=== PATIENT | female | born 1995 | race Caucasian/White ===

== ENCOUNTER 2019-04-11 07:53 | Day surgery (SDC) | payer OTHER ==
[2019-04-11 08:16] VITALS: BMI 27.6
[2019-04-11] MEDS ORDERED: hydrALAZINE 20 MG/ML VIAL SLOW IVP PRN (08:35)
== END 2019-04-11 08:30 | disposition home or self-care (01) ==
LOC: L&D/OP 07:53
PROVIDERS: ATTEND Family Medicine
DX: O26.893 Other specified pregnancy related conditions, third trimester (principal); O99.843 Bariatric surgery status complicating pregnancy, third trimester; Z3A.37 37 weeks gestation of pregnancy
CPT/HCPCS: 76815; 99282

== ENCOUNTER 2019-04-18 12:10 | Inpatient (IN) | payer OTHER ==
[2019-04-18 12:45] VITALS: BMI 28.0
[2019-04-18] MEDS ORDERED: hydrALAZINE 20 MG/ML VIAL SLOW IVP PRN (13:22)
--- NOTE | 2019-04-18 13:22 | PDOC.FPRHP ---
- Allergies/Adverse Reactions Allergies Allergy/AdvReac Type Severity Reaction Status Date / Time No Known Allergies Allergy Verified 04/11/19 08:31 - Home Medications Medication Instructions Recorded Confirmed Type Vit No.126/Iron/Folic 1 tab PO DAILY 04/11/19 04/18/19 History [Classic ] - History PMHx: PSHx: FHx: Social: - Vital signs BP: [] HR: [] RR: [] Tmax: [] Pox: []% on [] Wt: [] FMR H&P: Upper Level - Plan Date/Time: 04/18/19 1322 I, [], have evaluated this patient and agree with findings/plan as outlined by administration intern resident. Pertinent changes/additions are listed here.
--- NOTE | 2019-04-18 13:27 | PDOC.EVN ---
Event Note - Event Note Event Note: HISTORY AND PHYSICAL OBGYN Attending Time: 1320 L&D Triage (low Intervention room) CC: CTX HPI: The pateint sees Dr Acevedo. She is a 24 yo G1 at 38 weeks 6 days here with possible CTX since yesterday. Was 1cm yesterday and now is 3cm. No VB, no LOF, good FM, no issues. Review of Systems: complete ROS completed and as per HPI Past Med: None Past Surgical: none Allergies: none OB: G1, GBS negative Physical: BP and pulse wnl, afebrile, NAD 3/70/-1 Monitoring: STRIP 130s and reactive/Cat 1, toco with CTX every 3 min or so Assessment and plan: Latent labor at 38 weeks 6 days, GEB negative. 1. OBS for 2 hours 2. Admit if CX changes
--- NOTE | 2019-04-18 13:31 | PDOC.LDHP ---
Labor and Delivery H&P Chief complaint: contractions HPI: 24 yo G1 @ 38.6 presents for contractions that began last night. Ctx have increased in intensity and frequency and are now q3-5 min. Denies LOF. Has had some bloody show. Yesterday was dilated 1 cm. Denies dysuria, SOB, palpitations , edema, nausea, vomiting, headache, vision changes. Current gestational age (weeks): 38 (38.6) Due date: 04/26/19 Dating criteria: last menstrual period Grav: 1 Para: 0 OB History Details: Resolved placenta previa Current complications: none Past Medical History: None Current medications: pre-zeyad vitamins Previous surgical history: other (hiatal hernia repair, gastric sleeve) Allergies/Adverse Reactions: Allergies Allergy/AdvReac Type Severity Reaction Status Date / Time No Known Allergies Allergy Verified 04/11/19 08:31 Social history: none - Physical Exam Vital signs reviewed and normal: yes (113/76, 98.4, 18, 86) General: NAD Heart: RRR Lungs: nonlabored breathing FHT: category 1 (135/mod/+accel/no decel) [place] contractions every: 3-5 min - Vaginal Exam cm dilated: 3 Effacement: 75% Station: -1 - OB Labs Blood type: O RH: positive Antibody Screen: negative HIV: negative RPR: negative HEPSAg: negative 1 hour GCT: negative GBS: negative Rubella: immune - Plan Plan: observation in L&D -: Term sIUP w/ contractions - patient in low intervention suite - /-1 - GBS negative - confirmed vertex presentation on US - Cat I Plan for observation and will recheck cervix in 2 hours to see if patient makes change and progresses into labor
[2019-04-18] MEDS ORDERED: Diphenoxylate HCl/Atropine Tablet PO PRN (15:10)
[2019-04-18] MEDS ORDERED: Methylergonovine 0.2 MG/ML VIAL IM PRN (15:10)
[2019-04-18] MEDS ORDERED: Lactated Ringer's 1,000 ML IV PRN (15:10)
[2019-04-18] MEDS ORDERED: Carboprost 250 MCG/ML AMP IM PRN (15:10)
[2019-04-18] MEDS ORDERED: Promethazine HCl 25 MG/ML VIAL IM PRN (15:10)
[2019-04-18] MEDS ORDERED: Lidocaine 1% (PF) 30 ML VIAL SC PRN (15:10)
[2019-04-18] MEDS ORDERED: Ibuprofen 800 MG TAB PO PRN (15:10)
[2019-04-18] MEDS ORDERED: Misoprostol 200 MCG TAB PR PRN (15:10)
[2019-04-18] MEDS ORDERED: Acetaminophen 500 MG TAB PO PRN (15:10)
[2019-04-18] MEDS ORDERED: Ondansetron PF 4 MG/2 ML Vial IVP PRN (15:10)
[2019-04-18] MEDS ORDERED: Butorphanol Tartrate 1 MG/ML VIAL SLOW IVP PRN (15:10)
[2019-04-18] MEDS ORDERED: NS / Oxytocin 40 units/1000ml 1,000 ML IV PRN (15:10)
[2019-04-18 16:24] LABS: Hemoglobin 13.1 g/dL (12.0-16.0); Mean Corpuscular HGB CONC 34.5 g/dL (32.0-36.0); Mean Corpuscular Hemoglobin 32.3 pg (27.0-31.0); Mean Corpuscular Volume 93.8 fL (78.0-98.0); Mean Platelet Volume 7.4 fL (7.4-10.4); Platelet Count 194 thou/uL (130-400); RBC Distribution Width 12.4 % (11.5-14.5); Red Blood Cell (RBC) Count 4.07 mill/uL (4.20-5.40); White Blood Cell (WBC) Count 13.1 thou/uL (4.8-10.8)
[2019-04-18 17:09] LABS: Syphilis Antibody Nonreactive (Nonreactive); Syphilis Antibody Index 0.05 S/CO (<1.00 Non-Reactive)
[2019-04-18 17:25] LABS: HBSAg Index 0.34 S/CO (0-0.99); Hep B Surf Ag Non-Reactive S/CO (NonReactive)
--- NOTE | 2019-04-18 19:19 | PDOC.EVN ---
Event Note - Event Note Event Note: Here to evaluate patient. Currently latent phase of labor. /. FHT category I. Discussed the natural course of labor and that right now she is still latent phase. Low intervention. Advised bath and rest for now. 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 Will continue to follow low intervention nursing protocol. Anticipate delivery tomorrow sometime.
[2019-04-19] MEDS ORDERED: Lidocaine 1% (PF) 30 ML VIAL ONE (07:40)
[2019-04-19] MEDS ORDERED: NS / Oxytocin 40 units/1000ml 1,000 ML ONE (07:40)
--- NOTE | 2019-04-19 07:42 | PDOC.EVN ---
Event Note - Event Note Event Note: Labored well overnight. Now SVE 9/100/+1. Anterior cervix thick. Some molding. No caput. Advised changing positions to standing/on the ball. CTX every 4- 5 minutes. Continue expectant management. SROM at 0600 with very thin meconium.
[2019-04-19] MEDS ORDERED: hydrALAZINE 20 MG/ML VIAL SLOW IVP PRN (12:28)
[2019-04-19] MEDS ORDERED: Milk Of Magnesia 30 ML UDCUP PO PRN (12:28)
[2019-04-19] MEDS ORDERED: HYDROcodone/Acetaminophen 5/325 mg Tablet PO PRN (12:28)
[2019-04-19] MEDS ORDERED: NS / Oxytocin 40 units/1000ml 1,000 ML IV SCH (12:28)
[2019-04-19] MEDS ORDERED: Adacel (T-DAP) 0.5 ML SYRINGE IM ONE (12:28)
[2019-04-19] MEDS ORDERED: Preparation H Ointment 28 GM TUBE PR PRN (12:28)
[2019-04-19] MEDS ORDERED: Bisacodyl 10 MG SUPP PR PRN (12:28)
[2019-04-19] MEDS: Ferrous Sulfate 325 MG TAB PO SCH ×2 (15:33→16:25)
[2019-04-19] MEDS: Ibuprofen 800 MG TAB PO SCH ×2 (15:33→19:41)
[2019-04-19] MEDS: Docusate Calcium (SURFAK) 240 MG CAP PO SCH ×2 (15:33→19:41)
[2019-04-20] MEDS: Ibuprofen 800 MG TAB PO SCH ×2 (04:27→12:05)
--- NOTE | 2019-04-20 08:07 | PDOC.OPDEL ---
OB Operative/Delivery Note Delivery Dr/Surgeon: Curtis Pre-Delivery Diagnosis: active labor Procedure/Post Delivery Dx: spontaneous vaginal delivery (Complete and pushing, head OA, nuchal cord x1, unable to reduce, shoulders and body easily followed. No lacertaions.) Weeks gestation: 38 Anesthesia: none - Findings A Sex: female - 1 min: 9 - 5 min: 9 - Additional Findings/Plan Placenta delivered: spontaneous Repaired Obstetrical Laceration: none Estimated blood loss: 300 Post delivery plan: routine recovery
--- NOTE | 2019-04-20 08:09 | PDOC.PP ---
Post Progress Note Post Day #: 1 Subjective: Doing well. improving. Wants to go home. PO intake tolerated: yes Flatus: yes Ambulation: yes Vital Signs (12 hours) Temp Pulse Resp BP 04/20/19 04:30 98.3 F 52 L 16 113/75 04/19/19 23:45 97.8 F 60 16 106/61 Weight Weight 158 lb - Physical Examination General: NAD Cardiovascular: no m/r/g, RRR Respiratory: clear to auscultation bilaterally, non-labored breathing Abdominal: + bowel sounds, lochia, no distention, appropriately TTP Result Diagrams: 04/18/19 16:12 Additional Labs: Post Labs Blood Type O POSITIVE 04/18/19 16:12 Hep Bs Antigen Non-Reactive S/CO (NonReactive) 04/18/19 16:12 (1) Vaginal delivery Code(s): O80 - ENCOUNTER FOR FULL-TERM UNCOMPLICATED DELIVERY Status: Acute - Assessment/Plan Routine care. May D/C home later today. F/U with the baby in 1-2 days.
[2019-04-20 08:13] VITALS: BP 113/63; TEMP 97.6
[2019-04-20] MEDS ORDERED: Lanolin Ointment 7 GM TUBE TOP PRN (09:12)
[2019-04-20] MEDS: Docusate Calcium (SURFAK) 240 MG CAP PO SCH (09:13)
[2019-04-20] MEDS: Ferrous Sulfate 325 MG TAB PO SCH (09:17)
== END 2019-04-20 15:15 | disposition home or self-care (01) | DRG 807 ==
LOC: L&D/OP 12:10 → L&D-LIB 04-19 06:06 → 3SW 04-19 12:27
PROVIDERS: ADMIT Family Medicine; ATTEND Family Medicine
PROC: 10E0XZZ Delivery of Products of Conception, External Approach (ICD-10-PCS; principal; 2019-04-19)
DX: O63.0 Prolonged first stage (of labor) (principal); Z37.0 Single live birth; O77.0 Labor and delivery complicated by meconium in amniotic fluid; O69.1XX0 Labor and delivery complicated by cord around neck, with compression, not applicable or unspecified; Z3A.38 38 weeks gestation of pregnancy
CPT/HCPCS: 36415; 76815; 85027; 86780; 86850; 86900; 86901; 87340; 99285; J2001